=== PATIENT | female | born 1985 | race Two or more races ===

== ENCOUNTER 2019-06-23 19:11 | Inpatient (IN) | payer MEDICAID, OTHER ==
[~2019-06-23] VITALS: Ht 177.8 cm; Wt 95.8 kg
[2019-06-23] MEDS ORDERED: SODIUM CHLORIDE 0.9% 1,000 ML IV ONE (19:51)
[2019-06-23] MEDS ORDERED: ACETAMINOPHEN 500 MG TAB PO ONE (20:00)
[2019-06-23 20:20] LABS: Basophils # (auto) 0 10 ^3/uL (0-0.2); Basophils % (auto) 0.2 % (0.0-2.0); Eosinophils # (auto) 0 10 ^3/uL (0-0.8); Eosinophils % (auto) 0.1 % (0.0-7.0); Hematocrit 39.7 % (36.0-46.0); Hemoglobin 12.9 g/dL (12.2-16.2); Lymphocytes # (auto) 0.8 10 ^3/uL (0.4-5.4); Lymphocytes % (auto) 4.2 % (10.0-50.0); Mean Corpuscular Hemoglobin 30.2 pg (28.0-32.0); Mean Corpuscular Hgb Conc. 32.6 g/dL (32.0-36.0); Mean Corpuscular Volume 92.7 fL (80.0-100.0); Monocytes # (auto) 2.2 10 ^3/uL (0-1.3); Monocytes % (auto) 11.5 % (0.0-12.0); Neutrophils # (auto) 16.3 10 ^3/uL (1.6-8.6); Platelet Count (auto) 267 10^3/uL (140-450); Red Blood Cells 4.28 10^6/uL (4.0-5.20); Red Cell Distribution Width 13.8 % (11.8-14.3); White Blood Cell 19.3 10^3/uL (4.4-10.8)
[2019-06-23 20:37] LABS: Albumin 3.3 g/dL (3.4-5.0); BUN/Creatinine Ratio 15.7; Calcium 8.8 mg/dL (8.5-10.1); Potassium 3.7 mmol/L (3.5-5.1)
[2019-06-23 20:40] LABS: Bilirubin, Total 0.6 mg/dL (0.2-1.0); Total Protein 8.7 g/dL (6.4-8.2)
[2019-06-23 20:51] LABS: Urine Bacteria MOD /hpf (None Seen); Urine Blood 2+ /uL (Negative); Urine Mucus FEW (None Seen); Urine Specific Gravity 1.026 (1.001-1.035); Urine WBC 265 /hpf (0 - 5)
[2019-06-23] MEDS ORDERED: diphenhdrAMINE HCL 50 MG/1 ML VL IV ONE (22:00)
[2019-06-23] MEDS ORDERED: VANCOMYCIN 1GM/250ML 250 ML IV ONE (22:00)
[2019-06-23] MEDS ORDERED: methylPREDNISolone SOD SUCC 250 MG in SODIUM CHL 0.9% 100 ML IV ONE (22:00)
[2019-06-23] MEDS ORDERED: fentaNYL CITRATE 100 MCG/2 ML VL IV ONE (22:00)
[2019-06-23] MEDS ORDERED: methylPREDNISolone SOD SUCC 125 MG/2 ML VL ONE (22:37)
[2019-06-23] MEDS ORDERED: VANCOMYCIN PER PHARMACY 0 MG IV SCH (23:30)
[2019-06-23] MEDS ORDERED: ACETAMINOPHEN 325 MG TAB PO PRN (23:30)
[2019-06-23] MEDS ORDERED: DOCUSATE SOD 100 MG CAP PO PRN (23:30)
[2019-06-23] MEDS ORDERED: HYDROcodone-ACET 5/325MG TAB PO PRN (23:30)
[2019-06-23] MEDS ORDERED: MORPHINE SULFATE 4 MG/ML SYR/VIAL IV PRN (23:30)
[2019-06-23] MEDS ORDERED: ONDANSETRON HCL 4 MG/2 ML VIAL IV PRN (23:30)
--- NOTE | 2019-06-23 23:51 | NUR ---
ADMISSION NOTE PT ADMITTED TO ROOM 201 IN STABLE COND IN M/S STATUS. PT ORIENTED TO ROOM AND PROCEDURES AND POC DISCUSSED WITH PT. PT IS WITH RED RASH AND EDEMA ON HER FACE AND RIGHT EAR. PT DENIES ANY ALLERGIES TO MEDICATIONS OR FOOD. PT NOTED TO HAVE A VERY STEADY GAIT FROM W/C TO BED. BED IS LOW, WHEELS ARE LOCKED, AND CALL LIGHT IS WITH IN REACH.
[2019-06-24 00:48] VITALS: BP 121/78
[2019-06-24 05:00] VITALS: BP 76/78
[2019-06-24 06:14] LABS: Basophils # (auto) 0 10 ^3/uL (0-0.2); Basophils % (auto) 0.1 % (0.0-2.0); Eosinophils # (auto) 0 10 ^3/uL (0-0.8); Hematocrit 41.1 % (36.0-46.0); Hemoglobin 13.8 g/dL (12.2-16.2); Lymphocytes # (auto) 0.5 10 ^3/uL (0.4-5.4); Mean Corpuscular Hemoglobin 31.2 pg (28.0-32.0); Mean Corpuscular Hgb Conc. 33.4 g/dL (32.0-36.0); Mean Corpuscular Volume 93.3 fL (80.0-100.0); Monocytes # (auto) 0.4 10 ^3/uL (0-1.3); Monocytes % (auto) 2.6 % (0.0-12.0); Neutrophils # (auto) 14.6 10 ^3/uL (1.6-8.6); Neutrophils % (auto) 94.3 % (37.0-80.0); Nucleated Red Blood Cells % 0.1 %; Platelet Count (auto) 260 10^3/uL (140-450); Red Blood Cells 4.41 10^6/uL (4.0-5.20); White Blood Cell 15.5 10^3/uL (4.4-10.8)
[2019-06-24 06:32] LABS: BUN/Creatinine Ratio 17.7; Calcium 8.6 mg/dL (8.5-10.1); Potassium 4.3 mmol/L (3.5-5.1)
--- NOTE | 2019-06-24 07:30 | NUR ---
Opening Shift Note Assumed care of patient, awake and alert. No S/S of distress/SOB or pain. Instructed on POC and to call for assist PRN, will continue to monitor for changes Q1hr and PRN.
[2019-06-24 09:00] VITALS: BP 104/63
[2019-06-24] MEDS: VANCOMYCIN 1GM/250ML 250 ML IV SCH ×2 (10:57→18:26)
[2019-06-24] MEDS ORDERED: cefTRIAXone 1GM/50ML D5W 50 ML IV ONE (11:30)
[2019-06-24 13:00] VITALS: BP 133/76
--- NOTE | 2019-06-24 16:00 | NUR ---
IV removal IV ON LEFT AC LEAKING. DC'd with clean sterile technique, catheter fully intact. Pressure dressing applied to site. Patient tolerated well. NOTE:
--- NOTE | 2019-06-24 16:10 | NUR ---
IV insertion IV access obtained, via clean sterile technique by inserting 20 gauge catheter at RIGHT FOREARM after 1 attempt. IV secured properly. No trauma to site. Patient tolerated well. NOTE:
[2019-06-24 22:00] VITALS: BP 116/72
[2019-06-25] MEDS: VANCOMYCIN 1GM/250ML 250 ML IV SCH ×2 (02:00→10:51)
[2019-06-25 05:39] VITALS: BP 108/59
[2019-06-25 07:08] LABS: Basophils # (auto) 0 10 ^3/uL (0-0.2); Basophils % (auto) 0.1 % (0.0-2.0); Eosinophils # (auto) 0 10 ^3/uL (0-0.8); Eosinophils % (auto) 0.2 % (0.0-7.0); Hematocrit 36.1 % (36.0-46.0); Hemoglobin 11.9 g/dL (12.2-16.2); Lymphocytes # (auto) 1.5 10 ^3/uL (0.4-5.4); Lymphocytes % (auto) 7.8 % (10.0-50.0); Mean Corpuscular Hemoglobin 30.5 pg (28.0-32.0); Mean Corpuscular Hgb Conc. 32.9 g/dL (32.0-36.0); Mean Corpuscular Volume 92.5 fL (80.0-100.0); Monocytes # (auto) 2.2 10 ^3/uL (0-1.3); Monocytes % (auto) 11.4 % (0.0-12.0); Neutrophils # (auto) 15.8 10 ^3/uL (1.6-8.6); Neutrophils % (auto) 80.5 % (37.0-80.0); Platelet Count (auto) 279 10^3/uL (140-450); Red Cell Distribution Width 13.5 % (11.8-14.3); White Blood Cell 19.6 10^3/uL (4.4-10.8)
[2019-06-25 07:20] LABS: BUN/Creatinine Ratio 31.8; Calcium 8.4 mg/dL (8.5-10.1); Potassium 3.7 mmol/L (3.5-5.1)
--- NOTE | 2019-06-25 07:30 | NUR ---
RECEIVED REPORT FROM NIGHT NURSE. PATIENT RESTING IN BED, NO DISTRESS NOTED. WILL CONTINUE TO MONITOR.
[2019-06-25 09:00] VITALS: BP 101/58
[2019-06-25] MEDS ORDERED: cefTRIAXone 1GM/50ML D5W 50 ML IV SCH (09:00)
[2019-06-25 13:00] VITALS: BP 109/68
[2019-06-25 17:00] VITALS: BP 127/72
--- NOTE | 2019-06-25 17:50 | NUR ---
Discharge instructions given as ordered. Encourage to follow up with PMD as instructed. All questions and concerns addressed. Patient verbalized understanding. Medication reconciliation form completed and copy given to patient. IV removed with catheter intact, pressure dressing applied. Patient taken to LOBBY with all personal belongings, accompanied by staff member. No distress noted at time of departure.
== END 2019-06-25 16:50 | disposition home or self-care (01) | DRG 720 ==
LOC: ER 19:11 → CENTRAL 19:12
PROVIDERS: ADMIT Hospitalist; ATTEND Hospitalist
DX: A41.9 Sepsis, unspecified organism (principal); E87.1 Hypo-osmolality and hyponatremia; L03.211 Cellulitis of face; I88.9 Nonspecific lymphadenitis, unspecified; N39.0 Urinary tract infection, site not specified; J32.0 Chronic maxillary sinusitis; K04.7 Periapical abscess without sinus
CPT/HCPCS: 36415; 70486; 80048; 80053; 80202; 81001; 81025; 83605; 85025; 87040; 87086; 93005; 96361; 96365; 96368; 96375; G0378; J0696